=== PATIENT | male | born 1965 | race Caucasian/White ===

== ENCOUNTER 2016-09-10 08:19 | Emergency (ER) | payer OTHER ==
[~2016-09-10] VITALS: Ht 180.3 cm; Wt 68.0 kg
--- NOTE | 2016-09-10 08:30 | ED GI/GU/ABDOMINAL COMPLAINT ---
History of Present Illness General Chief Complaint: General Adult Stated Complaint: RT SCROTUM PAIN SENT BY FETTE Source: patient, family, old records Exam Limitations: no limitations Vital Signs & Intake/Output Vital Signs & Intake/Output Vital Signs Date Time Temp Pulse Resp B/P B/P Pulse O2 O2 Flow FiO2 Mean Ox Delivery Rate 09/10 1041 97.8 60 16 103/63 98 Room Air 09/10 0901 120/90 09/10 0826 98.2 68 20 118/77 100 Room Air Allergies Coded Allergies: NO KNOWN ALLERGIES (09/10/16) Reconcile Medications Oxycodone HCl/Acetaminophen (Percocet 5-325 MG Tablet) 5 MG-325 MG TABLET 1 TAB PO BID PRN pain Triage Note: SIB DR PIERRE FOR LEFT TESTICULAR PAIN SINCE 199. PER DR PIERRE, PT HAD RIGHT SCROTAL PAIN LAST WEEK, HAD U/S WHICH WAS NEG FOR TORSION. PT PLACED ON CIPRO X 10 DAYS AND PAIN GETTING BETTER ON THAT SIDE Triage Nurses Notes Reviewed? yes Onset: Abrupt Duration: hour(s): (7), constant Timing: recent history Quality/Severity: aching, sharpness, severe Severity Numbers: 10 Location: scrotal Radiation: no radiation Activities at Onset: sleep Prior Abdominal Problems: similar symptoms No Modifying Factors: none Associated Symptoms: denies HPI: This is a 51-year-old male with no medical history presents sent in by his primary care physician complaining of sharp severe throbbing left-sided testicular pain that woke him from sleep around 2:00 this morning. Patient reports that last week he had similar symptoms on the right side he had an outpatient ultrasound that showed an epididymal cyst. He was prescribed Cipro and the pain has since improved. He denies any trauma recent heavy lifting. The pain is nonradiating no back or abdominal pain no nausea no vomiting no difficulty urinating. He does report to urinary urgency frequency last week, no hematuria dysuria today. He denies any rectal pain, no diarrhea. No history of abdominal surgeries in the past she's never been seen by urologist (SOLITARIO PATTERSON) Past History Travel History Traveled to [place] past 21 day No Medical History Any Pertinent Medical History? none Surgical History Surgical History: non-contributory Psychosocial History What is your primary language Paraguayan Tobacco Use: Current Daily Use Daily Tobacco Use Amount/Type: => 5 Cigarettes daily ETOH Use: occasional use Illicit Drug Use: denies illicit drug use Family History Hx Contributory? No (SOLITARIO PATTERSON) Review of Systems Review of Systems Constitutional: Reports: see HPI. All Other Systems: Reviewed and Negative Comments Review of systems: See HPI, All other systems negative. Constitutional, no chills no fever, no malaise HEENT: no sore throat no congestion, no ear pain Cardiovascular: No chest pain , no palpitation , no orthopnea Skin: no rashes, no change in skin Respiratory: No dyspnea no cough no sputum GI: No nausea no vomiting, no diarrhea, no bloating/constipation : No dysuria No hematuria, frequency, no discharge Muscle skeletal: No joint pain, no back pain, no neck pain, Neurologic: no headache Psych: No stress Heme/endocrine: No bruising Immunology: No lymphadenopathy (SOLITARIO PATTERSON) Physical Exam Physical Exam General Appearance: well developed/nourished, no apparent distress, alert, awake Gastrointestinal: soft Comments: Well-developed well-nourished person in no acute distress HEENT: Normal EENT exam; PERRL, EOMI. HEAD is atraumatic. moist mucous membranes. Neck: Supple, normal range of motion Back: Nontender, no CVA tenderness. Full range of motion Cardiovascular: Regular rate and rhythms no murmurs Respiratory: No respiratory distress. Patient speaking in full complete sentences. Breath sounds clear to auscultation bilaterally: NO W/R/R Abdomen: Soft, nontender nondistended, no appreciable organomegaly. Normal bowel sounds. No rebound/guarding, No appreciable enlargement of the abdominal aorta, No ascites. Male : Normal external genitalia,right testicle nontender, no rash to the skin , neg phrens sign left testes tender. No scrotal swelling or mases, No lesions/ discharge. Extremity: No edema, full range of motion of extremities Neuro: Alert oriented x3, motor sensory normal. There were no obvious focal neurologic abnormalities. Skin: No appreciable rash on exposed skin, skin is warm and dry. Psych: Mood and affect is normal, memory and judgment is normal. Core Measures ACS in differential dx? No Severe Sepsis Present: No Septic Shock Present: No (SOLITARIO PATTERSON) Progress Differential Diagnosis: epididymitis, prostatitis, testicular torsion, ureterolithiasis, urinary retention, urethritis, UTI/pyelo, MALIGNANCY Plan of Care: Orders Procedure Date/time Status CBC WITHOUT DIFFERENTIAL 09/11 843 Complete BASIC METABOLIC PANEL 09/11 843 Complete CULTURE,URINE 09/10 822 Active URINALYSIS 09/10 822 Complete Laboratory Tests 09/10/16 1037: Urine Color VERONICA, Urine Clarity CLEAR, Urine pH 6.0, Ur Specific [place] 1.020, Urine Protein NEG, Urine Ketones NEG, Urine Nitrite NEG, Urine Bilirubin NEG, Urine Urobilinogen 0.2, Ur Leukocyte Esterase NEG, Ur Microscopic EXAM NOT REQUIRED, Urine Hemoglobin NEG, Urine Glucose NEG 09/10/16 0858: Anion Gap 11, Estimated GFR > 60, BUN/Creatinine Ratio 20.0, Glucose 106 H, Calcium 9.7, CBC w Diff NO MAN DIFF REQ, RBC 4.86, MCV 90.3, MCH 30.8, RDW 14.5, MPV 6.9 L, Gran % 80.3 H, Lymphocytes % 10.5 L, Monocytes % 7.9, Eosinophils % 0.9, Basophils % 0.4, Absolute Granulocytes 9.6 H, Absolute Lymphocytes 1.3, Absolute Monocytes 1.0 H, Absolute Eosinophils 0.1, Absolute Basophils 0, PUBS MCHC 34.1 Microbiology 09/10 1037 URINE ROUT: Urine Culture - [facility], US ORDERED. case d/w dr barreto agrees with plan pt medicated with toradol 30mg iv, morphine 6mg iv ordered 09/10/2016 10:07:27 AM discussed with the patient need follow his lab results to date pending urinalysis and ultrasound results he is declining anything else for pain reporting pain has improved 09/10/2016 10:21:33 AM discussed with the patient is ultrasound findings he is again declining anything for pain offered I discussed with the patient at length all of their results. I had an extensive conversation regarding need for close follow up with their primary care physician this week as well as return precautions. I answered all of their questions, they feel comfortable with the plan and follow-up care. I discussed with the patient/family the medications that they will receive. I gave them signs and symptoms that could indicate an adverse reaction. I have advised them to limit their activities until they can see how they respond to the medication. (ANDREW HEATH,SOLITARIO) Diagnostic Imaging: Viewed by Me: Ultrasound. Discussed w/RAD: Ultrasound. Radiology Impression: PATIENT: BLAKE GREEN PRESENT AGE: 51 PATIENT ACCOUNT NO: [id number] : 66 LOCATION: [facility] ORDERING PHYSICIAN: SOLITARIO HEATH SERVICE DATE: 09/10/16 EXAM TYPE: US - US-TESTICULAR EXAMINATION: US SCROTUM CLINICAL INFORMATION: Testicular pain COMPARISON: None TECHNIQUE: A sonogram of the scrotum was performed assessing long-scale appearance and color Doppler flow. FINDINGS: Right testicle is 4.3 x 1.9 x 4.7 cm Left testicle 4.6 x 1.7 x 3.8 cm. Normal equal arterial and venous flow bilaterally. Echogenicity within normal limits. Right epididymal head cyst 3 x 2 mm. Varicocele on the left is noted. IMPRESSION: No sonographic evidence for testicular torsion. Testicles appear normal with equal flow bilaterally. Varicocele on left. Epididymal head cyst on right DICTATED BY: MARQUEZ NOYOLA MD DATE/TIME DICTATED:09/10/161001 PATIENT CARE REPRESENTATIVE:MARICRUZ DATE/TIME TRANSCRIBED:09/10/161001 CONFIDENTIAL, DO NOT COPY WITHOUT APPROPRIATE AUTHORIZATION. <Electronically signed in Other Vendor System> SIGNED BY: MARQUEZ NOYOLA MD 09/10/16 1008 Initial ED EKG: none (SOLITARIO PATTERSON) Departure Departure Time of Disposition: 1107 Disposition: HOME OR SELF CARE Condition: Stable Clinical Impression Primary Impression: Varicocele Referrals: MARIELA FERNANDES,SERA PIERRE MD,KUSUM Ruelas (PCP/Family) Additional Instructions: follow up with urologist dr mathew- call his office today to make an appointment. continue taking the cipro as directed. percocet for breakthrough pain- use caution as this is a narcotic and highly addictive. no driving or drinking alcohol while taking. rest, ice, wear high riding briefs with support Departure Forms: Customer Survey General Discharge Information Prescriptions: Current Visit Scripts Oxycodone HCl/Acetaminophen (Percocet 5-325 MG Tablet) 1 TAB PO BID PRN pain #10 TAB (SOLITARIO PATTERSON) PA/SMALL BUSINESS REPRESENTATIVE Co-Sign Statement Statement: ED Attending supervision documentation- [] I saw and evaluated the patient. I have also reviewed all the pertinent lab results and diagnostic results. I agree with the findings and the plan of care as documented in the PA's/SMALL BUSINESS REPRESENTATIVE's documentation. [X] I have reviewed the ED Record and agree with the PA's/SMALL BUSINESS REPRESENTATIVE's documentation. [] Additions or exceptions (if any) to the PAs/SMALL BUSINESS REPRESENTATIVE's note and plan are summarized below: [] (CHAVA FERNANDES,MICHELLE Chandler)
[2016-09-10 09:05] LABS: ABSOLUTE BASOPHIL COUNT 0 /CUMM (0.0-0.2); ABSOLUTE EOSINOPHIL COUNT 0.1 /CUMM (0.0-0.7); ABSOLUTE GRANULOCYTE CT 9.6 /CUMM (1.4-6.5); ABSOLUTE LYMPH COUNT 1.3 /CUMM (1.2-3.4); BASOPHIL % 0.4 % (0.0-2.0); EOSINOPHIL % 0.9 % (0-5); GRANULOCYTE % 80.3 % (42.2-75.2); HEMATOCRIT 43.9 % (42-52); MEAN CORPUSCULAR HGB 30.8 PG (27.0-31.0); MEAN CORPUSCULAR HGB CONC 34.1 G/DL (33.0-37.0); MEAN CORPUSCULAR VOLUME 90.3 FL (80.0-94.0); MEAN PLATELET VOLUME 6.9 FL (7.4-10.4); PLATELET COUNT 339 /CUMM (130-400); RBC DISTRIBUTION WIDTH 14.5 % (11.5-14.5); RED BLOOD CELL CT 4.86 /CUMM (4.70-6.10)
--- NOTE | 2016-09-10 10:08 | ULTRASOUND REPORT ---
EXAMINATION: US SCROTUM CLINICAL INFORMATION: Testicular pain COMPARISON: None TECHNIQUE: A sonogram of the scrotum was performed assessing long-scale appearance and color Doppler flow. FINDINGS: Right testicle is 4.3 x 1.9 x 4.7 cm Left testicle 4.6 x 1.7 x 3.8 cm. Normal equal arterial and venous flow bilaterally. Echogenicity within normal limits. Right epididymal head cyst 3 x 2 mm. Varicocele on the left is noted. IMPRESSION: No sonographic evidence for testicular torsion. Testicles appear normal with equal flow bilaterally. Varicocele on left. Epididymal head cyst on right
[2016-09-10 10:41] VITALS: BP 103/63
[2016-09-10] MEDS ORDERED: PERCOCET 5-3251 EACH PO (11:07)
== END 2016-09-10 11:40 ==
LOC: ERH 08:19
PROVIDERS: Physician Assistant Medical
DX: I86.1 Scrotal varices (principal)
CPT/HCPCS: 81003; 87086; 96374; 96375; J1885